=== PATIENT | female | born 1960 | race Caucasian/White ===

== ENCOUNTER 2024-02-16 19:15 | Emergency (ER) | payer BC ==
[~2024-02-16] VITALS: Ht 162.6 cm; Wt 87.5 kg
[2024-02-16 19:21] VITALS: BP 145/85
== END 2024-02-16 19:58 | disposition home or self-care (01) ==
LOC: ER 19:15
DX: R07.0 Pain in throat (principal)
CPT/HCPCS: 99282

== ENCOUNTER 2024-06-23 10:49 | Inpatient (IN) | payer OTHER ==
[~2024-06-23] VITALS: Ht 162.6 cm; Wt 89.1 kg
[2024-06-23] MEDS ORDERED: Ketorolac Tromethamine 30mg Vial IV ONE (11:30)
[2024-06-23] MEDS ORDERED: NS 1,000 ML IV SCH ×2 (11:30→17:15)
[2024-06-23] MEDS ORDERED: Ondansetron HCl 2 MG / ML 2ML Vial IV ONE ×2 (11:30→17:00)
[2024-06-23 12:01] LABS: BASOPHILS ABSOLUTE AUTO 0.03 K/mm3 (0.00-0.23); BASOPHILS PERCENT AUTO 0 % (0-2); EOSINOPHILS PERCENT AUTO 0 % (0-6); Hematocrit 42.1 % (33.0-51.0); Hemoglobin 14.3 g/dL (11.5-16.0); IMMATURE GRAN PERCENT AUTO 1 % (0-1); LYMPHOCYTES ABSOLUTE AUTO 0.85 K/mm3 (0.84-5.20); LYMPHOCYTES PERCENT AUTO 5 % (21-46); MONOCYTES ABSOLUTE AUTO 0.61 K/mm3 (0.16-1.47); MONOCYTES PERCENT AUTO 4 % (4-13); Mean Corpuscular HGB 30.3 pg (26.0-34.0); Mean Corpuscular Volume 89 fL (80-100); Mean Platelet Volume 10.3 fL (9.1-12.4); NEUTROPHILS ABSOLUTE AUTO 14.75 K/mm3 (1.96-9.15); NEUTROPHILS PERCENT AUTO 90 % (41-73); Platelet Count 234 K/mm3 (150-400); RDW Standard Deviation 39.7 fL (35.1-46.3); Red Blood Cell Count 4.72 M/mm3 (3.80-5.20); White Blood Cell Count 16.34 K/mm3 (4.00-11.30)
[2024-06-23 12:10] LABS: Source, Urine Clean Catch
[2024-06-23 12:35] LABS: Albumin, Blood 3.6 g/dL (3.4-5.0); Albumin/Globulin Ratio 0.9 (0.8-1.8); Bilirubin, Total 1.5 mg/dL (0.1-1.0); Bun/Creatinine Ratio 27.4 (12.0-20.0); Calcium, Blood 9.4 mg/dL (8.5-10.1); Creatinine, Blood 0.77 mg/dL (0.40-1.00); Globulin, Blood 3.9 g/dL (2.2-4.0); Magnesium, Blood 2.2 mg/dL (1.6-2.4); Potassium, Blood 4.3 mmol/L (3.5-5.5); Total Protein, Blood 7.5 g/dL (6.4-8.2)
[2024-06-23 13:06] LABS: Appearance, Urine Hazy (Clear); Blood, Urine 1+ (Neg); Glucose Qualitative, Urine Neg (Neg); Ketones, Urine 1+ (Neg); Leukocyte Esterase, Urine Neg (Neg); Nitrite, Urine Pos (Neg); Protein, Urine 2+ (Neg); Urobilinogen, Urine 2+ (Normal)
[2024-06-23 13:27] LABS: Bilirubin, Urine 3+ (Neg); Color, Urine Orange (P-Yellow)
[2024-06-23 13:29] LABS: Bacteria Many /hpf; Hyaline Casts 0-2 /lpf (0-2); Squamous Epithelial Cells Few /hpf (Few)
[2024-06-23] MEDS ORDERED: HYDROmorphone HCl/Pf 1MG SYR IV ONE (17:00)
[2024-06-23] MEDS ORDERED: Lactated Ringer's 1,000 ML IV ONE (17:00)
[2024-06-23] MEDS ORDERED: Ondansetron HCl 2 MG / ML 2ML Vial IV PRN ×2 (17:05→19:00)
[2024-06-23] MEDS ORDERED: Ampicillin Sod/Sulbactam Sod 3 GM in NS 100 ML IV ONE (17:05)
[2024-06-23] MEDS ORDERED: HYDROmorphone HCl/Pf 1MG SYR IV PRN ×2 (17:05→18:55)
[2024-06-23] MEDS ORDERED: Lactated Ringer's 1,000 ML IV SCH (18:55)
[2024-06-23] MEDS ORDERED: FLU VACC TS2024-25(6MOS UP)/PF 45 MCG/0.5 ML SYRINGE IM ONE (18:55)
[2024-06-23] MEDS ORDERED: Famotidine 20 MG Tab PO SCH (21:00)
[2024-06-23] MEDS ORDERED: Docusate Sodium 100 MG Cap PO SCH (21:00)
[2024-06-23 21:18] VITALS: BP 122/58
[2024-06-24] MEDS ORDERED: Ampicillin Sod/Sulbactam Sod 3 GM in NS 100 ML IV SCH
[2024-06-24] MEDS ORDERED: HYDROmorphone HCl/Pf 1MG SYR IV PRN (00:15)
[2024-06-24 01:08] VITALS: BP 118/53
--- NOTE | 2024-06-24 01:21 | NUR ---
ADMIT NOTE 64 YR OLD FEMALE ADMITTED TO FLOOR FROM THE ED WITH DX OF PERFORATED DIVERTICULUM OF LLQ. ED RN REPORTED PT C/O ABD PAIN WITH N/V X 2 DAYS PRIOR TO COMING IN. HX DIVERTICULITIS. ALERT AND ORIENTED. ORIENTED TO USE OF CALL LIGHT. UP TO BATHROOM WITH ASSIST. NPO. IVF OF LR AT 100 ML/HR AND ANTIBIOTICS INFUSING. PAIN MEDS ADMIN. CALL LIGHT IN REACH. WILL CONT TO MONITOR
--- NOTE | 2024-06-24 03:02 | NUR ---
CONTENT PRODUCTION SPECIALIST SUMMARY VSS. ADMITTED EARLIER IN THE SHIFT WITH DX OF PERFORATED DIVERTICULUM. NPO. IVF OF LR AND INTERMITTENT ANTIBIOTICS INFUSING - SEE MAR FOR DETAILS. ALERT AND ORIENTED.C/O PAIN OF LEFT LOWER ABD QUADRANT. RECEIVED IV DILAUDID AND HAS BEEN RESTING QUIETLY WITH FEW INTERRUPTIONS SINCE. WAS ORIENTED TO USE OF CALL LIGHT. UP WITH OBS. ABLE TO REPOSITION SELF IN BED WITHOUT ASSIST. CALL LIGHT IN REACH, RAILS UP X 2 AND BED IN LOW POSITION FOR SAFETY. NO NOTED BM OF THIS WRITING, WILL CONT TO MONITOR
[2024-06-24 05:41] LABS: BASOPHILS ABSOLUTE AUTO 0.02 K/mm3 (0.00-0.23); BASOPHILS PERCENT AUTO 0 % (0-2); EOSINOPHILS ABSOLUTE AUTO 0.01 K/mm3 (0.00-0.68); EOSINOPHILS PERCENT AUTO 0 % (0-6); Hematocrit 38.6 % (33.0-51.0); Hemoglobin 12.8 g/dL (11.5-16.0); IMMATURE GRAN ABSOLUTE AUTO 0.11 K/mm3 (0.00-0.10); IMMATURE GRAN PERCENT AUTO 1 % (0-1); LYMPHOCYTES ABSOLUTE AUTO 1.54 K/mm3 (0.84-5.20); LYMPHOCYTES PERCENT AUTO 11 % (21-46); MONOCYTES PERCENT AUTO 4 % (4-13); Mean Corpuscular HGB 29.8 pg (26.0-34.0); Mean Corpuscular HGB Conc 33.2 g/dL (31.5-36.5); Mean Corpuscular Volume 90 fL (80-100); Mean Platelet Volume 10.5 fL (9.1-12.4); NEUTROPHILS ABSOLUTE AUTO 12.31 K/mm3 (1.96-9.15); NEUTROPHILS PERCENT AUTO 84 % (41-73); Platelet Count 200 K/mm3 (150-400); RDW Coefficient Variation 12.3 % (11.7-14.2); RDW Standard Deviation 39.9 fL (35.1-46.3); White Blood Cell Count 14.59 K/mm3 (4.00-11.30)
[2024-06-24 06:18] LABS: Calcium, Blood 9.2 mg/dL (8.5-10.1); Creatinine, Blood 0.73 mg/dL (0.40-1.00); Potassium, Blood 4.2 mmol/L (3.5-5.5)
[2024-06-24 07:51] VITALS: BP 111/49
[2024-06-24] MEDS ORDERED: D5W-1/2NS KCl 20mEq 1,000 ML IV SCH (08:50)
[2024-06-24] MEDS ORDERED: Enoxaparin 40 MG/0.4 ML SYR SC SCH (09:00)
[2024-06-24] MEDS ORDERED: NS 250 ML IV PRN (11:05)
[2024-06-24] MEDS ORDERED: Prochlorperazine Edisylate 10 mg Vial IV PRN (13:25)
[2024-06-24 14:43] VITALS: BP 106/66
--- NOTE | 2024-06-24 16:30 | NUR ---
SHIFT SUMMARY PT RESTING QUIETLY, BUT AWAKE DURING SHIFT REPORT. PT THEN REPORTING N/V. ZOFRAN GIVEN. DR SERRANO AND DR CASTRO SOON TO TO SEE PT AND DISCUSS PLAN OF CARE. NEW ORDERS PLACED. IVF'S CHANGED. PT UP TO BTHRM INDEPENDENTLY; REPORTED HAVING BM. PT MEDICATED X1 FOR C/O PAIN; LOW ABD PAIN WELL PIÑA FROM NO CAFFIENE. PT'S DAUGHTER CALLED FOR UPDATE. PT DENIED FURTHER NEEDS AT THIS TIME. CALL LT IN REACH.
[2024-06-24 19:47] VITALS: BP 119/64
[2024-06-24] MEDS ORDERED: Acetamin/Butalbital/Caffeine Tab PO ONE (20:50)
--- NOTE | 2024-06-25 03:57 | NUR ---
SHIFT SUMMARY A&OX4, VSS, REPORTS ABD REMAINS TENDER BUT DOES NOT LIKE PAIN MEDS, DENIES NAUSEA, SLEPT THIS SHIFT-WOKE EASILY FOR CARES, SLEEPING AT THIS TIME, CALL LIGHT IN REACH, WILL CONT TO MONITOR UNTIL REPORT GIVEN TO OMCOMING NURSE.
[2024-06-25 05:39] VITALS: BP 119/67
[2024-06-25 05:47] LABS: BASOPHILS ABSOLUTE AUTO 0.04 K/mm3 (0.00-0.23); BASOPHILS PERCENT AUTO 0 % (0-2); EOSINOPHILS PERCENT AUTO 1 % (0-6); Hematocrit 38.4 % (33.0-51.0); Hemoglobin 12.6 g/dL (11.5-16.0); IMMATURE GRAN ABSOLUTE AUTO 0.02 K/mm3 (0.00-0.10); IMMATURE GRAN PERCENT AUTO 0 % (0-1); LYMPHOCYTES ABSOLUTE AUTO 1.75 K/mm3 (0.84-5.20); LYMPHOCYTES PERCENT AUTO 16 % (21-46); MONOCYTES ABSOLUTE AUTO 0.51 K/mm3 (0.16-1.47); MONOCYTES PERCENT AUTO 5 % (4-13); Mean Corpuscular HGB 29.9 pg (26.0-34.0); Mean Corpuscular HGB Conc 32.8 g/dL (31.5-36.5); Mean Corpuscular Volume 91 fL (80-100); Mean Platelet Volume 10.3 fL (9.1-12.4); NEUTROPHILS ABSOLUTE AUTO 8.52 K/mm3 (1.96-9.15); NEUTROPHILS PERCENT AUTO 78 % (41-73); Platelet Count 203 K/mm3 (150-400); RDW Coefficient Variation 12.1 % (11.7-14.2); RDW Standard Deviation 40.4 fL (35.1-46.3); Red Blood Cell Count 4.22 M/mm3 (3.80-5.20); White Blood Cell Count 10.94 K/mm3 (4.00-11.30)
[2024-06-25] MEDS ORDERED: Acetaminophen 325 MG TABLET PO PRN (05:50)
[2024-06-25 06:08] LABS: Bun/Creatinine Ratio 16.2 (12.0-20.0); Calcium, Blood 8.8 mg/dL (8.5-10.1); Creatinine, Blood 0.74 mg/dL (0.40-1.00); Potassium, Blood 3.6 mmol/L (3.5-5.5)
[2024-06-25 08:16] VITALS: BP 108/57
[2024-06-25] MEDS ORDERED: Ketorolac Tromethamine 15mg Vial IV PRN (09:45)
[2024-06-25] MEDS ORDERED: HYDROcodone 5-APAP 325 TAB PO PRN (09:50)
[2024-06-25] MEDS ORDERED: D5W-1/2NS KCl 20mEq 1,000 ML IV SCH (09:50)
[2024-06-25 15:45] VITALS: BP 120/62
--- NOTE | 2024-06-25 16:19 | NUR ---
SUMMARY- PT A/O X4, INDEPENDANT IN ROOM. DR SERRANO IN TO EVAL PT THIS AM 0900. STARTED PT ON CLEARS TODAY, TOLERATING CLEARS WITHOUT NAUSEA OR EMESIS. PT COULDN'T TOLERATE THE SIDE EFFECTS OF THE DILAUDID AND TRIED NORCO THIS AFTERNOON, PT STATES ABD PAIN INTERMITTANT SPASMS, PAIN INCREASES WHEN PT GOES TO THE BATHROOM 01/01. PT HAS D5 1/2 NS WITH 20K INFUSING AT 50/HR. PT STATES NO BM TODAY BUT PASSING GAS.
[2024-06-25 19:26] VITALS: BP 114/60
[2024-06-25] MEDS ORDERED: Acetamin/Butalbital/Caffeine Tab PO ONE (22:45)
[2024-06-26 04:47] VITALS: BP 102/60
[2024-06-26 05:21] LABS: BASOPHILS ABSOLUTE AUTO 0.03 K/mm3 (0.00-0.23); BASOPHILS PERCENT AUTO 0 % (0-2); EOSINOPHILS ABSOLUTE AUTO 0.15 K/mm3 (0.00-0.68); EOSINOPHILS PERCENT AUTO 2 % (0-6); Hematocrit 36.1 % (33.0-51.0); Hemoglobin 11.8 g/dL (11.5-16.0); IMMATURE GRAN ABSOLUTE AUTO 0.03 K/mm3 (0.00-0.10); IMMATURE GRAN PERCENT AUTO 0 % (0-1); LYMPHOCYTES ABSOLUTE AUTO 1.47 K/mm3 (0.84-5.20); LYMPHOCYTES PERCENT AUTO 19 % (21-46); MONOCYTES ABSOLUTE AUTO 0.43 K/mm3 (0.16-1.47); MONOCYTES PERCENT AUTO 6 % (4-13); Mean Corpuscular HGB 29.9 pg (26.0-34.0); Mean Corpuscular HGB Conc 32.7 g/dL (31.5-36.5); Mean Corpuscular Volume 91 fL (80-100); Mean Platelet Volume 10.1 fL (9.1-12.4); NEUTROPHILS ABSOLUTE AUTO 5.47 K/mm3 (1.96-9.15); NEUTROPHILS PERCENT AUTO 72 % (41-73); Platelet Count 216 K/mm3 (150-400); RDW Standard Deviation 40.9 fL (35.1-46.3); Red Blood Cell Count 3.95 M/mm3 (3.80-5.20); White Blood Cell Count 7.58 K/mm3 (4.00-11.30)
--- NOTE | 2024-06-26 05:41 | NUR ---
SHIFT SUMMARY;PATIENT SLEPT IN LONG INTERVALS. NO NAUSEA OR EMESIS. STATES SHE IS STILL HAVING LOOSE STOOLS AND WE WITHHELD THE COLACE. SHE DEVELOPED A HEADACHE, D/T CAFFIENE WITHDRAWL. CALLED FOR TATYANA ALVARADO.
[2024-06-26 07:42] VITALS: BP 120/77
[2024-06-26] MEDS ORDERED: Amoxicillin/Clavulanate K 875 MG Tab PO SCH (10:00)
[2024-06-26 16:18] VITALS: BP 120/71
--- NOTE | 2024-06-26 19:05 | NUR ---
SHIFT SUMMARY PT A&OX4. PT ADMITTED DUE TO A PERFORATED DIVERTICULITIS. PT TOLERATING SOFT AND BITE SIZE LEVEL 6 DIET. PT HASN'T REPORTED NAUSEA OR VOMITING THIS AFTERNOON. PT STARTED ORAL ANTIBIOTIC TODAY. PT REPORTS SOME ABD PAIN, MEDICATED WITH REST AND TORADOL ONCE THIS AM. PT ON ROOM AIR. PT AMBULATES INDEPENDENTLY. FLUIDS D/C TODAY. PT CALLS APPROPRIATE. BED IN LOWEST POSITION. CALL LIGHT IN REACH. DR. SERRANO SAW PT THIS AM.
[2024-06-26 19:22] VITALS: BP 117/81
--- NOTE | 2024-06-26 23:29 | NUR ---
PATIENT C/O ABD PAIN AFTER USING THE BR. MEDICATED WITH 2 NORCO AND TOREDOL.
--- NOTE | 2024-06-27 04:25 | NUR ---
SHIFT SUMMARY;PATIENT ABLE TO SLEEP IN LONG INTERVALS. DID HAVE AN EPISODE OF ABD PAIN OF 8. MEDICATED WITH 2 NORCO AND TORADOL. NO NAUSEA OR EMESIS, NO LOOSE STOOLS. PATIENT DID REFUSE THE PEPCID, FELT HER STOMACH WAS NOT UPSET.
[2024-06-27 04:53] VITALS: BP 111/73
[2024-06-27 05:08] LABS: BASOPHILS ABSOLUTE AUTO 0.05 K/mm3 (0.00-0.23); BASOPHILS PERCENT AUTO 1 % (0-2); EOSINOPHILS PERCENT AUTO 2 % (0-6); Hematocrit 37.4 % (33.0-51.0); Hemoglobin 12.2 g/dL (11.5-16.0); IMMATURE GRAN ABSOLUTE AUTO 0.05 K/mm3 (0.00-0.10); IMMATURE GRAN PERCENT AUTO 1 % (0-1); LYMPHOCYTES ABSOLUTE AUTO 1.62 K/mm3 (0.84-5.20); LYMPHOCYTES PERCENT AUTO 19 % (21-46); MONOCYTES ABSOLUTE AUTO 0.57 K/mm3 (0.16-1.47); MONOCYTES PERCENT AUTO 7 % (4-13); Mean Corpuscular HGB 29.7 pg (26.0-34.0); Mean Corpuscular HGB Conc 32.6 g/dL (31.5-36.5); Mean Corpuscular Volume 91 fL (80-100); NEUTROPHILS ABSOLUTE AUTO 5.85 K/mm3 (1.96-9.15); NEUTROPHILS PERCENT AUTO 70 % (41-73); Platelet Count 248 K/mm3 (150-400); RDW Coefficient Variation 11.9 % (11.7-14.2); RDW Standard Deviation 39.8 fL (35.1-46.3); Red Blood Cell Count 4.11 M/mm3 (3.80-5.20); White Blood Cell Count 8.34 K/mm3 (4.00-11.30)
--- NOTE | 2024-06-27 06:16 | NUR ---
UP TO BSC, VOID, USED WALKER AND JUST SBA.
[2024-06-27 07:42] VITALS: BP 118/76
[2024-06-27] MEDS ORDERED: AMOCLA875 PO (11:36)
[2024-06-27] MEDS ORDERED: HYDR1TAB94 PO (11:37)
[2024-06-27] MEDS ORDERED: MIRALAX17 GM PO (11:37)
--- NOTE | 2024-06-27 12:12 | NUR ---
DISCHARGE NOTE PT A&OX4. PT ADMITTED DUE TO PERFORATED DIVERTICULITIS. PT INDEPENDENT IN ROOM. PT HAD IMAGING THIS AM. PT REPORTS IMPROVED NAUSEA. PT REPORTS BM THAT WAS FORMED THIS AM. PT REPORTS ABD PAIN AND TENDERNESS, PAIN MANAGED WITH REST AND PER EMAR. HARD SCRIPT WITH PT. MEDS FAXED TO PHARMACY. PT REPORTS WILL CONT. ORAL ANTIBIOTICS AND FOLLOW UP WITH DR. SERRANO. PT ESCORTED BY DISK GRINDER VIA WHEELCHAIR TO PERSONAL VEHICLE. PT REPORTS IS PASSING GAS. IV WAS D/C. VSS.
--- NOTE | 2024-06-27 12:45 | NUR ---
WENT OVER MEDS AND DISCHARGE INSTRUCTIONS.
== END 2024-06-27 12:16 | disposition home or self-care (01) | DRG 392 ==
LOC: ER 10:49 → ERHOLD 10:50 → MEDS 10:51 → ENPENDDIS 06-27 10:37 → MEDS 06-27 12:16
PROVIDERS: Student in an Organized Health Care Education/Training Program; ADMIT Surgery
DX: K57.20 Diverticulitis of large intestine with perforation and abscess without bleeding (principal); E78.5 Hyperlipidemia, unspecified; Z90.49 Acquired absence of other specified parts of digestive tract; Z79.899 Other long term (current) drug therapy; Z90.710 Acquired absence of both cervix and uterus; Z98.890 Other specified postprocedural states; K59.00 Constipation, unspecified; N73.9 Female pelvic inflammatory disease, unspecified
CPT/HCPCS: 36415; 74177; 80048; 80053; 81001; 83690; 83735; 85025; 87086; 93005; 93010; 96361; 96365-59; 96375; 96376; 99285-25; A9270; G0378; J0295; J1171; J1885; J2405; J7050; J7120; Q9967

== ENCOUNTER → 2025-02-27 | Outpatient (CLI) | payer OTHER ==
[~2025-02-27] MED LIST: AMOCLA875 PO; HYDR1TAB94 PO; Hair, Skin & N1 EACH; MIRALAX17 GM PO; ZOCOR20 MG
[2025-02-27 19:22] LABS: BASOPHILS ABSOLUTE AUTO 0.05 K/mm3 (0.00-0.23); BASOPHILS PERCENT AUTO 1 % (0-2); EOSINOPHILS ABSOLUTE AUTO 0.15 K/mm3 (0.00-0.68); EOSINOPHILS PERCENT AUTO 2 % (0-6); Hematocrit 42.3 % (33.0-51.0); Hemoglobin 14.3 g/dL (11.5-16.0); IMMATURE GRAN ABSOLUTE AUTO 0.02 K/mm3 (0.00-0.10); IMMATURE GRAN PERCENT AUTO 0 % (0-1); LYMPHOCYTES ABSOLUTE AUTO 2.43 K/mm3 (0.84-5.20); LYMPHOCYTES PERCENT AUTO 37 % (21-46); MONOCYTES ABSOLUTE AUTO 0.38 K/mm3 (0.16-1.47); MONOCYTES PERCENT AUTO 6 % (4-13); Mean Corpuscular HGB Conc 33.8 g/dL (31.5-36.5); Mean Corpuscular Volume 88 fL (80-100); NEUTROPHILS ABSOLUTE AUTO 3.50 K/mm3 (1.96-9.15); NEUTROPHILS PERCENT AUTO 54 % (41-73); NRBC ABSOLUTE 0.00 K/mm3 (0.00-0.02); NRBC Auto 0.0 /100 WBC (0.0-0.2); Platelet Count 253 K/mm3 (150-400); RDW Coefficient Variation 12.1 % (11.7-14.2); RDW Standard Deviation 39.0 fL (35.1-46.3)
[2025-02-27 19:57] LABS: Alanine Aminotransfer (ALT/SGP 34 U/L (12-78); Albumin, Blood 4.2 g/dL (3.4-5.0); Albumin/Globulin Ratio 1.4 (0.8-1.8); Anion Gap 6 mmol/L (3-11); Aspartate Aminotrans (AST/SGOT 20 U/L (12-37); Bilirubin, Total 0.7 mg/dL (0.1-1.0); Blood Urea Nitrogen 17 mg/dL (8-24); CHOL/HDL RATIO 4.3; CO2, Blood 31 mmol/L (21-32); Calcium, Blood 9.6 mg/dL (8.5-10.1); Chloride, Blood 103 mmol/L (98-108); Cholesterol 204 mg/dL (50-200); Creatinine, Blood 0.81 mg/dL (0.40-1.00); Globulin, Blood 3.1 g/dL (2.2-4.0); Glucose, Blood 101 mg/dL (70-99); HDL Cholesterol 47 mg/dL (>39); LDL/HDL RATIO 2.7; Low Density Lipoprotein Chol 129 mg/dL (0-110); Potassium, Blood 4.2 mmol/L (3.5-5.5); Sodium, Blood 136 mmol/L (136-145); Total Protein, Blood 7.3 g/dL (6.4-8.2); Triglycerides 142 mg/dL (30-160); Very Low Density Lipoprot Chol 28 mg/dL (6-32)
== END ==
LOC: LAB 19:00 → LAB SHORT 19:00
PROVIDERS: Nurse Practitioner Family
DX: E78.5 Hyperlipidemia, unspecified (principal)
CPT/HCPCS: 80053; 80061; 85025